=== PATIENT | male | born 1960 | race Caucasian/White ===

== ENCOUNTER 2017-11-26 08:07 | Outpatient (CLI) | payer OTHER ==
[2017-11-26] MEDS ORDERED: ISOVUE-370 76%-LOCM 1 ML ONE (11:16)
== END 2017-11-26 08:08 | disposition home or self-care (01) ==
LOC: BICCT 08:07
PROVIDERS: ATTEND Internal Medicine Hematology & Oncology
DX: C85.88 Other specified types of non-Hodgkin lymphoma, lymph nodes of multiple sites (principal); K76.0 Fatty (change of) liver, not elsewhere classified; K57.30 Diverticulosis of large intestine without perforation or abscess without bleeding
CPT/HCPCS: 70491; 71260; 74177

== ENCOUNTER 2018-07-01 09:34 | Outpatient (CLI) | payer OTHER ==
--- NOTE | 2018-07-01 12:42 | CT ---
CT CHEST WITH CONTRAST CT ABDOMEN WITH CONTRAST CT PELVIS WITH CONTRAST: HISTORY: Non-Hodgkin's lymphoma. COMPARISON: CT of 11/26/2017. FINDINGS: No suspicious pulmonary nodule. No pneumothorax. No effusion. The thyroid demonstrates a small hypodensity in the right lobe measuring over a centimeter. There is an AP window lymph node measuring 9 mm in short axis axial image 37 of series 2 unchanged from the c omparison examination. No other mediastinal lymph nodes are appreciated. No axillary adenopathy. N o internal mammary adenopathy. No pericardial effusion. The liver, spleen, and pancreas are all unremarkable. No hydroureteral nephrosis. No abnormal renal enhancing mass. Small right external iliac lymph node on axial image 104 of series 2 measures 5 mm in short axis, unc hanged. No new adenopathy. No pathologically enlarged lymph nodes. Mild diverticular disease of the sigmoid colon without active current inflammation. The appendix is felt to be visualized and appears normal. Aortoiliac contour is nonaneurysmal. Mild facet arthrosis of lower lumbar spine. IMPRESSION: 1. No pathologically enlarged lymph nodes in the chest, abdomen, or pelvis. 2. No acute inflammatory process. 3. Small lipoma of the left rectus abdominus muscle. POS: [facility]
== END 2018-07-01 09:35 | disposition home or self-care (01) ==
LOC: BICCT 09:34
PROVIDERS: ATTEND Internal Medicine Hematology & Oncology
DX: C85.88 Other specified types of non-Hodgkin lymphoma, lymph nodes of multiple sites (principal); D17.1 Benign lipomatous neoplasm of skin and subcutaneous tissue of trunk
CPT/HCPCS: 71260; 74177

== ENCOUNTER 2023-05-24 07:12 | Day surgery (SDC) | payer OTHER ==
[2023-05-21 15:01] VITALS: BMI 30.6
[2023-05-24] MEDS ORDERED: PROPOFOL 40 ML ONE (08:54)
[2023-05-24] MEDS ORDERED: Lidocaine 1% PF 5 ML VIAL ONE (08:54)
[2023-05-24] MEDS ORDERED: PHENYLEPHRINE-NS 100 MCG/ML 10 ML SYRINGE ONE (09:00)
[2023-05-24] MEDS ORDERED: EPINEPHrine 1 MG/10 ML Abboject SYRINGE ONE (09:04)
== END 2023-05-24 10:15 | disposition home or self-care (01) ==
LOC: SDC 07:12
PROVIDERS: ATTEND Internal Medicine Gastroenterology
PROC: 0DBN8ZZ Excision of Sigmoid Colon, Via Natural or Artificial Opening Endoscopic (ICD-10-PCS; principal; 2023-05-24)
DX: Z12.11 Encounter for screening for malignant neoplasm of colon (principal); D17.5 Benign lipomatous neoplasm of intra-abdominal organs; I50.9 Heart failure, unspecified; Z80.0 Family history of malignant neoplasm of digestive organs; Z95.810 Presence of automatic (implantable) cardiac defibrillator
CPT/HCPCS: 88305; J0171; J2704